=== PATIENT | male | born 1970 | race Hispanic/Latino ===

== ENCOUNTER 2023-07-16 23:52 | Emergency (ER) | payer OTHER, SELFPAY ==
[2023-07-16 23:58] VITALS: BP 169/93; PULSE 70; RESP 18; TEMP 36.5; O2SAT 99; BMI 20.9
[2023-07-17] VITALS: BP 165/90; PULSE 65; O2SAT 100
--- NOTE | 2023-07-17 00:01 | PC.NURSE ---
Patient arrives to ED via BLS[facility]EMS from [facility] for L ankle pain after twisting/spraining his ankle earlier today. During triage patient states he is homeless and will not have a ride back to [facility] at discharge. At this time patient states that he wants [facility] at [facility]. States last admission there was +/- 5 years ago. Pt states he is suppose to be on psych meds, but does not have any. Self medicating with THC and Meth. Patient denies SI/HI.
[2023-07-17 00:10] VITALS: PULSE 70
--- NOTE | 2023-07-17 00:13 | DI.RAD.S_ITS ---
PROCEDURE: XR ANKLE LT MIN 3V INDICATIONS: pop and snap ankle, pain TECHNIQUE: 3 views of the ankle were acquired. COMPARISON: None. FINDINGS: Bones: No acute fractures or dislocations. Ankle mortise is normally aligned. No suspicious bony lesions. Remote fracture at the tip of the lateral malleolus. Soft tissues: Small tibiotalar joint effusion. Achilles tendon appears normal. IMPRESSION: No displaced fracture, with a small tibiotalar effusion. If there remains a high clinical concern or the patient cannot bear weight, consider cross-sectional imaging to exclude an occult fracture. Dictated by: Neil Walker M.D. on 07/17/2023 at 1:59 Approved by: Neil Walker M.D. on 07/17/2023 at 2:00
[2023-07-17 00:24] VITALS: PULSE 73; O2SAT 99
[2023-07-17 00:30] VITALS: BP 160/104
--- NOTE | 2023-07-17 01:49 | PC.NURSE ---
Called Inpatient Behavioral Health at [facility] spoke to Zina. Zina states they do not have any beds available at this time- callback at 0800 as they have some pending discharges at that time and a bed may open up.
--- NOTE | 2023-07-17 02:13 | ED_ITS ---
HPI - Extremity Injury (Lower) General Chief Complaint: Extremity Injury, Lower Stated Complaint: left ankle injury Time Seen by Provider: 07/17/23 01:38 Source: patient and EMS Mode of arrival: EMS History of Present Illness HPI Narrative: Patient 53-year-old male history of methamphetamine use, history presenting today with left ankle pain. Reports that he rolled off a curb yesterday. He says he re-injured it tonight somehow and that it was cold outside where he was sleeping. He denies any thoughts of self-harm or harm to others. He is requesting inpatient behavioral health at [facility]. He is supposed to take some sort of medication he does not remember the names. Related Data Home Medications Medication Instructions Recorded Confirmed ALBUTEROL (PROVENTIL INHALER) 0.09 mg IH PRN ##0 04/21/11 HYDROCODONE/ACET 2 tab PO BID ##0 04/21/11 (Hydrocodon-Acetaminophen 5-325) citalopram 20 mg tablet 40 mg PO QDAY ##0 04/21/11 ezetimibe 10 mg-simvastatin 40 mg 1 tab PO Q DAY ##0 04/21/11 tablet (Vytorin) fluticasone propionate 110 1 spray INH Q DAY ##0 04/21/11 mcg/actuation HFA aerosol inhaler (Flovent HFA) quetiapine 200 mg tablet (Seroquel) 400 mg PO HS ##0 04/21/11 trazodone 100 mg tablet 300 mg PO HS ##0 04/21/11 Previous Rx's Medication Instructions Recorded amoxicillin 875 mg-potassium 875 mg PO BID #14 tabs 09/26/16 clavulanate 125 mg tablet (Augmentin) prednisone 20 mg tablet 60 mg PO QDAY #15 tabs 09/26/16 Allergies Allergy/AdvReac Type Severity Reaction Status Date / Time bacitracin Allergy Unknown Unverified 02/26/18 12:16 [From NEOSPORIN ([id number])] neomycin Allergy Unknown Unverified 02/26/18 12:16 [From NEOSPORIN ([id number])] polymyxin B Allergy Unknown Unverified 02/26/18 12:16 [From NEOSPORIN ([id number])] Review of Systems Review of Systems ROS Unobtainable: All systems reviewed & are unremarkable except as noted in HPI and below Patient History Substance Use Type: marijuana and methamphetamine Exam Initial Vital Signs Initial Vital Signs: Vital Signs Temperature 97.7 F 07/16/23 23:58 Pulse Rate 70 07/16/23 23:58 Respiratory Rate 18 07/16/23 23:58 Blood Pressure 169/93 H 07/16/23 23:58 Pulse Oximetry 99 07/16/23 23:58 Oxygen Delivery Method Room Air 07/16/23 23:58 GENERAL: Alert disheveled 53-year-old male CARDIOVASCULAR: peripheral pulses in tact, cap refill <2 sec RESPIRATORY: No respiratory distress, speaks in full sentences without difficulty EXTREMITIES: Normal range of motion, no clubbing or edema. Neurovascularly intact Left lower extremity mild lateral tenderness no significant swelling Achilles intact knee is stable distal pedal pulse intact NEUROLOGICAL: Cranial nerves II through XII grossly intact. Normal gait and speech. SKIN: Warm, dry, no petechiae, no rashes or lesions. Course Orders Ordered: ED Orders 07/17/23 00:13 XR ankle LT min 3V Stat 07/17/23 02:17 Consult to LABOR RELATIONS CONSULTANT - Counseling [facility] Director Stat Vital Signs Vital signs: Vital Signs - 8 hr 07/16/23 23:58 07/17/23 00:10 07/17/23 00:00 Temperature 97.7 F Pulse Rate 70 Pulse Rate [Left Dorsalis Pedis] 70 Respiratory Rate 18 Blood Pressure 169/93 H 165/90 H Pulse Oximetry 99 Oxygen Delivery Method Room Air 07/17/23 00:00 07/17/23 00:24 07/17/23 00:30 Temperature Pulse Rate 65 73 Pulse Rate [Left Dorsalis Pedis] Respiratory Rate Blood Pressure 160/104 H Pulse Oximetry 100 99 Oxygen Delivery Method Room Air Room Air 07/17/23 02:29 07/17/23 02:29 Temperature Pulse Rate 63 Pulse Rate [Left Dorsalis Pedis] Respiratory Rate Blood Pressure 138/97 H Pulse Oximetry 99 Oxygen Delivery Method Room Air MDM - Extremity Injury (Lower) Imaging Data Extremity x-ray #1: Radiologist's Impression: PROCEDURE:? XR ANKLE LT MIN 3V ? INDICATIONS:? pop and snap ankle, pain ? TECHNIQUE:? 3 views of the ankle were acquired.? ? COMPARISON:? None. ? FINDINGS:? ? Bones:? No acute fractures or dislocations.? Ankle mortise is normally aligned.? No suspicious bony lesions.? Remote fracture at the tip of the lateral malleolus.? ? Soft tissues:? Small tibiotalar joint effusion.? Achilles tendon appears normal.? ? ? IMPRESSION:? No displaced fracture, with a small tibiotalar effusion.? If there remains a high clinical concern or the patient cannot bear weight, consider cross- sectional imaging to exclude an occult fracture. ? Dictated by: Neil Walker M.D. on 07/17/2023 at 1:59 ? ? [facility] Narrative Medical decision making narrative: Patient 53-year-old homeless male presents today with left ankle pain. X-rays negative for fracture. He has been seen to the restroom a handful of times without any difficulty. He is requesting psychiatric treatment but is not significantly paranoid gravely disabled denies any suicidal or homicidal ideations. Does not seem acute. Nursing staff did call [facility] they do not have any bed availability. At this time does not meet any involuntary criteria. Discharge Plan Departure Patient Disposition: Home Clinical Impression: Left ankle sprain Instructions: DI for Ankle Sprain Activity Restrictions/Additional Instructions: *You have been diagnosed with left ankle sprain *What to do: At this time elevate and ice as needed *Continue to take medications as directed *Follow up with your primary care provider in 2-3 days or call [phone] *Return to ER if you should have any new, worsening or concerning symptoms Prescriptions: No Action ezetimibe-simvastatin [Vytorin 10-40] 10 MG/40 MG tablet 1 tab PO Q DAY Qty: 0 quetiapine [Seroquel] 200 MG tablet 400 mg PO HS Qty: 0 citalopram 20 MG tablet 40 mg PO QDAY Qty: 0 trazodone 100 MG tablet 300 mg PO HS Qty: 0 ALBUTEROL (PROVENTIL INHALER) 0.09 mg IH PRN Qty: 0 HYDROCODONE/ACET (Hydrocodon-Acetaminophen 5-325) 2 tab PO BID Qty: 0 fluticasone propionate [Flovent HFA] 12 GM HFA aerosol inhaler 1 spray INH Q DAY Qty: 0 amoxicillin-pot clavulanate [Augmentin] 875 MG/125 MG tablet 875 mg PO BID Qty: 14 0RF prednisone 20 MG tablet 60 mg PO QDAY Qty: 15 0RF Referrals: Jason Vera MD [Primary Care Provider] - Stand Alone Forms: Patient Portal/API
[2023-07-17 02:29] VITALS: BP 138/97; PULSE 63; O2SAT 99
== END 2023-07-17 02:34 | disposition home or self-care (01) ==
PROVIDERS: Emergency Provider Emergency Medicine; Family Provider Internal Medicine; PCP Internal Medicine
DX: S93.402A Sprain of unspecified ligament of left ankle, initial encounter (principal); X58.XXXA Exposure to other specified factors, initial encounter; Y93.9 Activity, unspecified
CPT/HCPCS: 73610; 99283